=== PATIENT | female | born 1995 | race American Indian/Alaskan Native ===

== ENCOUNTER 2018-03-17 13:10 | Emergency (ER) | payer SELFPAY ==
[2018-03-17 13:20] VITALS: BP 125/72
[2018-03-17 14:36] LABS: HCG Qualitative,Urine Negative (Negative)
[2018-03-17 14:39] LABS: Bacteria,Urine 2+ /HPF (Negative); Bilirubin,Urine NEG (Negative); Blood,Urine SM (Negative); Color,Urine Yellow (Yellow); Mucus,Urine 1+ /HPF; Protein,Urine <15 mg/dL mg/dL (Negative); Urobilinogen,Urine < 2.0 mg/dL (<2.0)
--- NOTE | 2018-03-17 16:17 | Emergency Department Report ---
ED Female HPI - General Chief complaint: Abdominal Pain Stated complaint: BACK PAIN Time Seen by Provider: 03/17/18 16:10 Source: patient Mode of arrival: Ambulatory Limitations: No Limitations - History of Present Illness Initial comments: This is a 23-year-old female here complaining of low back pain and lower abdominal cramping times weeks. Denies any vaginal bleeding or discharge or any concern for STDs. She reports that she was having some nausea which is not happened today. In report that she was having some dizziness. Patient denies any painful urination. Reports that she was having urinary frequency and urgency. No alleviating or exacerbating factor. Pain is 10/10 to back and to some extent to abdomen. Intermittent abdomen and constant lower back. She is a history of asthma and 2. No medication taken prior to coming to the emergency room. Denies any fever or chills. MD Complaint: pelvic pain Onset/Timin Location: suprapubic, other (back) Radiation: non-radiating Severity: severe Severity scale (0 -10): 10 Quality: cramping Improves with: none Worsens with: none Are you Now?: No Last Menstrual Period: 02/16/18 EDC: 11/23/18 Associated Symptoms: abdominal pain, nausea/vomiting. denies: vaginal discharge , vaginal bleeding, fever/chills, headaches, loss of appetite, dysuria, hematuria, rash, seizure, shortness of breath, syncope, weakness - Related Data Sexually active: Yes Previous Rx's Medication Instructions Recorded Last Taken Type Fluconazole [Diflucan TAB] 200 mg PO QDAY 2 Days #2 tablet 03/17/18 Unknown Rx Ibuprofen [Motrin] 800 mg PO Q8HR PRN #15 tablet 03/17/18 Unknown Rx Ondansetron [Zofran Odt] 4 mg PO Q6H PRN #20 tab.rapdis 03/17/18 Unknown Rx Sulfamethoxazole/Trimethoprim 1 each PO BID 7 Days #14 tablet 03/17/18 Unknown Rx [Bactrim DS TAB] Allergies Allergy/AdvReac Type Severity Reaction Status Date / Time Penicillins Allergy Swelling Verified 03/17/18 13:17 ED Review of Systems ROS: Stated complaint: BACK PAIN Other details as noted in HPI Constitutional: denies: chills, fever Eyes: denies: eye discharge Respiratory: denies: cough, shortness of breath, SOB with exertion, SOB at rest , stridor, wheezing Cardiovascular: denies: chest pain, palpitations, edema, syncope Gastrointestinal: abdominal pain, nausea. denies: vomiting, diarrhea, constipation, hematemesis, melena, hematochezia Genitourinary: urgency, frequency. denies: dysuria, hematuria, discharge, abnormal menses, dyspareunia Musculoskeletal: denies: back pain, joint swelling, arthralgia Skin: denies: rash, lesions Psychiatric: anxiety ED Past Medical Hx - Past Medical History Previous Medical History?: Yes Hx Asthma: Yes - Surgical History Past Surgical History?: Yes Additional Surgical History: x 2 - Family History Family history: hypertension - Social History Smoking Status: Never Smoker Substance Use Type: None - Medications Home Medications: Home Medications Medication Instructions Recorded Confirmed Last Taken Type Fluconazole [Diflucan TAB] 200 mg PO QDAY 2 Days #2 tablet 03/17/18 Unknown Rx Ibuprofen [Motrin] 800 mg PO Q8HR PRN #15 tablet 03/17/18 Unknown Rx Ondansetron [Zofran Odt] 4 mg PO Q6H PRN #20 tab.rapdis 03/17/18 Unknown Rx Sulfamethoxazole/Trimethoprim 1 each PO BID 7 Days #14 tablet 03/17/18 Unknown Rx [Bactrim DS TAB] ED Physical Exam - General Limitations: No Limitations General appearance: alert, in no apparent distress - Head Head exam: Present: atraumatic, normocephalic, normal inspection - Eye Eye exam: Present: normal appearance, PERRL, EOMI Pupils: Present: normal accommodation - ENT ENT exam: Present: normal exam, normal orophraynx, mucous membranes moist, TM's normal bilaterally, normal external ear exam - Neck Neck exam: Present: normal inspection, full ROM. Absent: tenderness, lymphadenopathy - Respiratory Respiratory exam: Present: normal lung sounds bilaterally. Absent: respiratory distress, chest wall tenderness - Cardiovascular Cardiovascular Exam: Present: regular rate, normal rhythm, normal heart sounds, rubs. Absent: systolic murmur, diastolic murmur - GI/Abdominal GI/Abdominal exam: Present: soft, normal bowel sounds. Absent: distended, tenderness, guarding, rebound, rigid, organomegaly, mass - Extremities Exam Extremities exam: Present: normal inspection, full ROM, normal capillary refill , other (No cce. + 2 pulses in all extremities, no neurovascular compromise). Absent: tenderness, pedal edema, joint swelling, calf tenderness - Back Exam Back exam: Present: normal inspection, full ROM, other (ambulance without any difficulties). Absent: tenderness, CVA tenderness (R), CVA tenderness (L), muscle spasm, paraspinal tenderness, vertebral tenderness, rash noted - Neurological Exam Neurological exam: Present: alert, oriented X3, normal gait, reflexes normal. Absent: motor sensory deficit - Psychiatric Psychiatric exam: Present: normal affect, normal mood - Skin Skin exam: Present: warm, dry, intact, normal color. Absent: rash ED Course Vital Signs 03/17/18 13:17 Temperature 98.4 F Pulse Rate 88 Respiratory 18 Rate Blood Pressure 125/72 O2 Sat by Pulse 99 Oximetry - Reevaluation(s) Reevaluation #1: 03/17/18 16:57 Patient is stable and received Zofran 8 mg ODT and Toradol 30 mg IM for pain and nausea. ED Medical Decision Making - Lab Data Lab Results 03/17/18 Range/Units 13:36 Urine Color Yellow (Yellow) Urine Turbidity Cloudy (Clear) Urine pH 5.0 (5.0-7.0) Ur Specific [place] 1.025 (1.003-1.030) Urine Protein <15 mg/dl (Negative) mg/dL Urine Glucose (UA) Neg (Negative) mg/dL Urine Ketones Neg (Negative) mg/dL Urine Blood Sm (Negative) Urine Nitrite Neg (Negative) Ur Reducing Substances Not Reportable Urine Bilirubin Neg (Negative) Urine Ictotest Not Reportable Urine Urobilinogen < 2.0 (<2.0) mg/dL Ur Leukocyte Esterase Lg (Negative) Urine WBC (Auto) 17.0 H (0.0-6.0) /HPF Urine RBC (Auto) 9.0 (0.0-6.0) /HPF U Epithel Cells (Auto) 21.0 H (0-13.0) /HPF Urine Bacteria (Auto) 2+ (Negative) /HPF Urine Mucus 1+ /HPF Urine Yeast (Budding) 1+ /HPF Urine HCG, Qual Negative (Negative) Urine culture sent - Medical Decision Making This is a 23-year-old female here complaining of abdominal pain with some nausea that started 2 weeks ago and says she just moved to the area and she does not have a primary care physician. She is here to be seen. Patient was seen and examined by myself and physical findings is normal to include her abdomen exam. Patient urinalysis shows large amount of discomfort side esterase, positive white blood cell, small amount of blood, positive bacteria and yeast and urine is also contaminated. Culture was sent. test is negative. I discussed diagnosis and laboratory findings the patient and she was understanding. I told her that she needs to follow up with [facility] for [facility] and primary care in 2 days. She was understanding. Patient was given Toradol 30 mg IM and Zofran 8 mg ODT to manage pain to back and abdomen and also nausea. She is with acute cystitis with hematuria, low back pain, pelvic pain and nausea alone. Patient is stable , vital signs afebrile she is pain and nausea free and discharged home in stable condition. Critical care attestation.: If time is entered above; I have spent that time in minutes in the direct care of this critically ill patient, excluding procedure time. ED Disposition Clinical Impression: Acute cystitis with hematuria, Pelvic pain, Nausea alone, Yeast UTI Lower back pain Qualifiers: Chronicity: acute Back pain laterality: bilateral Sciatica presence: without sciatica Qualified Code(s): M54.5 - Low back pain Disposition: - TO HOME OR SELFCARE Is pt being admited?: No Does the pt Need Aspirin: No Condition: Stable Instructions: Abdominal Pain (ED), Acute Nausea and Vomiting (ED), Urinary Tract Infection in Women (ED), Back Pain (ED) Additional Instructions: Please increase her fluid intake Take medication as prescribed. Take Bactrim for urinary tract infection and Zofran for nausea. Take Motrin for pain as prescribed Follow up at [facility] where he can have [facility] and primary care visit. Call tomorrow to schedule an appointment for visit within the next 2 days If his symptoms worsen, return to the emergency room. Referrals: [facility] [Outside] - 03/19/18 [facility] [Provider Group] - 03/19/18 Forms: Work/School Release Form(ED)
[2018-03-17] MEDS ORDERED: TORADOL IM ONE (16:56)
[2018-03-17] MEDS ORDERED: ZOFRAN ODT PO ONE (16:56)
== END 2018-03-17 17:21 | disposition home or self-care (01) ==
LOC: ED 13:10
DX: M54.5 Low back pain (principal); N30.01 Acute cystitis with hematuria; R11.2 Nausea with vomiting, unspecified; J45.909 Unspecified asthma, uncomplicated; Z88.0 Allergy status to penicillin
CPT/HCPCS: 81001; 81025; 96372; 99284; J1885; Q0162

== ENCOUNTER 2018-04-21 20:02 | Emergency (ER) | payer SELFPAY ==
[2018-04-21 21:41] VITALS: BP 114/50
[2018-04-22] MEDS ORDERED: TORADOL IM ONE (00:03)
[2018-04-22] MEDS ORDERED: TORADOL ONE (00:07)
--- NOTE | 2018-04-22 00:10 | Emergency Department Report ---
ED Lower Extremity HPI - General Chief Complaint: Extremity Injury, Lower Stated Complaint: LEG PAIN Time Seen by Provider: 04/21/18 23:39 Source: patient Mode of arrival: Ambulatory Limitations: Physical Limitation - History of Present Illness Initial Comments: Patient 23-year-old -[place] female who states she fell down steps 12 2 days ago now complains of left anterior lateral knee pain times described as 6 /10 achy soreness exacerbated by weightbearing movement prolonged sitting and associated swelling and bruising patient states has progressed over the last 2 days no numbness no tingling or paralysis patient remains ambulatory with MD Complaint: knee injury Onset/Timin -: days(s) Injury: Knee: Left (left lateral knee ) Type of Injury: blunt, other (fall ) Place: home Severity: moderate Severity scale (0 -10): 6 Improves With: nothing Worsens With: weight bearing, movement, palpation Associated Symptoms: snap/pop sensation, swelling, able to partially bear weight. denies: numbness, tingling - Related Data Previous Rx's Medication Instructions Recorded Last Taken Type Fluconazole [Diflucan TAB] 200 mg PO QDAY 2 Days #2 tablet 03/17/18 Unknown Rx Ibuprofen [Motrin] 800 mg PO Q8HR PRN #15 tablet 03/17/18 Unknown Rx Ondansetron [Zofran Odt] 4 mg PO Q6H PRN #20 tab.rapdis 03/17/18 Unknown Rx Sulfamethoxazole/Trimethoprim 1 each PO BID 7 Days #14 tablet 03/17/18 Unknown Rx [Bactrim DS TAB] Cyclobenzaprine [Flexeril] 10 mg PO TID PRN #30 tablet 04/22/18 Unknown Rx Menthol/Camphor [[place] 1 applic TP TID PRN #1 tube 04/22/18 Unknown Rx Ointment] Naproxen [Naprosyn] 500 mg PO BID PRN #30 tablet 04/22/18 Unknown Rx Allergies Allergy/AdvReac Type Severity Reaction Status Date / Time Penicillins Allergy Swelling Verified 03/17/18 13:17 ED Review of Systems ROS: Stated complaint: LEG PAIN Other details as noted in HPI Constitutional: denies: chills, fever Eyes: denies: eye pain, eye discharge, vision change ENT: denies: ear pain, throat pain Respiratory: denies: cough, shortness of breath, wheezing Cardiovascular: denies: chest pain, palpitations Endocrine: no symptoms reported Gastrointestinal: denies: abdominal pain, nausea, diarrhea Genitourinary: denies: urgency, dysuria, discharge Musculoskeletal: joint swelling, myalgia. 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 - Surgical History Past Surgical History?: Yes Additional Surgical History: x 2 - Social History Smoking Status: Never Smoker Substance Use Type: None - Medications Home Medications: Home Medications Medication Instructions Recorded Confirmed Last Taken Type Fluconazole [Diflucan TAB] 200 mg PO QDAY 2 Days #2 tablet 03/17/18 Unknown Rx Ibuprofen [Motrin] 800 mg PO Q8HR PRN #15 tablet 03/17/18 Unknown Rx Ondansetron [Zofran Odt] 4 mg PO Q6H PRN #20 tab.rapdis 03/17/18 Unknown Rx Sulfamethoxazole/Trimethoprim 1 each PO BID 7 Days #14 tablet 03/17/18 Unknown Rx [Bactrim DS TAB] Cyclobenzaprine [Flexeril] 10 mg PO TID PRN #30 tablet 04/22/18 Unknown Rx Menthol/Camphor [[place] 1 applic TP TID PRN #1 tube 04/22/18 Unknown Rx Ointment] Naproxen [Naprosyn] 500 mg PO BID PRN #30 tablet 04/22/18 Unknown Rx ED Physical Exam - General Limitations: Physical Limitation General appearance: alert, in no apparent distress - Head Head exam: Present: atraumatic, normocephalic - Eye Eye exam: Present: normal appearance - ENT ENT exam: Present: mucous membranes moist - Neck Neck exam: Present: normal inspection - Respiratory Respiratory exam: Present: normal lung sounds bilaterally. Absent: respiratory distress - Cardiovascular Cardiovascular Exam: Present: regular rate, normal rhythm. Absent: systolic murmur, diastolic murmur, rubs, gallop - GI/Abdominal GI/Abdominal exam: Present: soft, normal bowel sounds - Rectal Rectal exam: Present: deferred - Extremities Exam Extremities exam: Present: full ROM, tenderness, normal capillary refill, joint swelling - Expanded Lower Extremity Exam Left Knee exam: Present: full ROM, tenderness, swelling, ecchymosis, pain w/ pronation/supination, pain/laxity with valgus, pain/laxity with varus, full knee extension. Absent: abrasion, laceration, deformity, crepidus, dislocation , erythema, effusion, posterior draw sign Ankle exam: Present: normal inspection, full ROM Foot/Toe exam: Present: normal inspection, full ROM Neuro vascular tendon exam: Present: no vascular compromise Gait: Positive: observed and limited by pain ED Course Vital Signs 04/21/18 21:40 Temperature 99.3 F Pulse Rate 88 Respiratory 18 Rate Blood Pressure 114/50 [Right] O2 Sat by Pulse 100 Oximetry ED Lower Extremity MDM - Radiology Data Radiology results: report reviewed, image reviewed X-ray left knee no fracture no soft tissue abnormality - Medical Decision Making This is a knee strain plan NSAIDs muscle relaxants cryotherapy knee exercises and follow with PCP in 2-3 days follow-up also surgery if symptoms persist patient verbalizes agreement and understanding of same patient for DC'd home in stable condition at this time Critical care attestation.: If time is entered above; I have spent that time in minutes in the direct care of this critically ill patient, excluding procedure time. ED Disposition Clinical Impression: Knee strain Qualifiers: Encounter type: initial encounter Laterality: left Qualified Code(s): S86.912A - Strain of unspecified muscle(s) and tendon(s) at lower leg level, left leg, initial encounter Disposition: DC- TO HOME OR SELFCARE Is pt being admited?: No Does the pt Need Aspirin: No Condition: Good Instructions: Knee Pain (ED), Knee Exercises (GEN) Prescriptions: Cyclobenzaprine [Flexeril] 10 mg PO TID PRN #30 tablet PRN Reason: Muscle Spasm Menthol/Camphor [[place] Ointment] 1 applic TP TID PRN #1 tube PRN Reason: pain Naproxen [Naprosyn] 500 mg PO BID PRN #30 tablet PRN Reason: pain Referrals: PRIMARY CARE,MD [Primary Care Provider] - 3-5 Days Forms: Work/School Release Form(ED) Time of Disposition: 00:43
--- NOTE | 2018-04-22 00:32 | XRay Report ---
FINAL REPORT EXAM: XR KNEE 1-2V LT HISTORY: knee pain COMPARISON: None available. FINDINGS: Two views of the left knee obtained. Bony structures are intact. Joint spaces are preserved. No acute fracture dislocation. IMPRESSION: No acute bony abnormality.
== END 2018-04-22 00:57 | disposition home or self-care (01) ==
LOC: ED 20:02
DX: S86.912A Strain of unspecified muscle(s) and tendon(s) at lower leg level, left leg, initial encounter (principal); J45.909 Unspecified asthma, uncomplicated; Z88.0 Allergy status to penicillin; X58.XXXA Exposure to other specified factors, initial encounter; Y93.89 Activity, other specified; Y92.009 Unspecified place in unspecified non-institutional (private) residence as the place of occurrence of the external cause; Y99.8 Other external cause status
CPT/HCPCS: 73560; 96372; 99283; J1885

== ENCOUNTER 2018-08-13 14:05 | Emergency (ER) | payer OTHER ==
[2018-08-13 14:28] VITALS: BP 117/51
--- NOTE | 2018-08-13 15:55 | XRay Report ---
FINAL REPORT EXAM: XR CHEST ROUTINE 2V HISTORY: productive cough COMPARISON: Chest radiograph performed on 07/30/2018 TECHNIQUE: Frontal and lateral views of the chest. FINDINGS: The cardiomediastinal silhouette is normal in appearance. The lungs are clear without focal consolidation. There is no pleural effusion or pneumothorax. There is no acute soft tissue or osseous abnormality. IMPRESSION: No acute cardiopulmonary disease.
--- NOTE | 2018-08-13 16:09 | Emergency Department Report ---
Minor Respiratory - HPI Chief Complaint: Chest Pain Stated Complaint: CHEST PAIN Time Seen by Provider: 08/13/18 15:24 Duration: 1 week Pain Location: Chest Severity: moderate Minor Respiratory: Yes Able to Tolerate Fluids, Yes Cough (productive of phlegm and stearks of blood), Yes Chest Pain, No Rhinorrhea, No Sore Throat, No Ear Pain, No Sick Contacts, No Hemoptysis, No Shortness of Breath, No Fever ED Review of Systems ROS: Stated complaint: CHEST PAIN Other details as noted in HPI Comment: All other systems reviewed and negative ED Past Medical Hx - Past Medical History Previous Medical History?: Yes Hx Asthma: Yes 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 - Surgical History Past Surgical History?: No Additional Surgical History: x 2 - Social History Smoking Status: Never Smoker Substance Use Type: None - Medications Home Medications: Home Medications Medication Instructions Recorded Confirmed Last Taken Type Fluconazole [Diflucan TAB] 200 mg PO QDAY 2 Days #2 tablet 03/17/18 Unknown Rx Ibuprofen [Motrin] 800 mg PO Q8HR PRN #15 tablet 03/17/18 Unknown Rx Ondansetron [Zofran Odt] 4 mg PO Q6H PRN #20 tab.rapdis 03/17/18 Unknown Rx Sulfamethoxazole/Trimethoprim 1 each PO BID 7 Days #14 tablet 03/17/18 Unknown Rx [Bactrim DS TAB] Cyclobenzaprine [Flexeril] 10 mg PO TID PRN #30 tablet 04/22/18 Unknown Rx Menthol/Camphor [[place] 1 applic TP TID PRN #1 tube 04/22/18 Unknown Rx Ointment] Naproxen [Naprosyn] 500 mg PO BID PRN #30 tablet 04/22/18 Unknown Rx Azithromycin [Zithromax Z-PALAK] 250 mg PO DAILY #6 tablet 07/30/18 Unknown Rx Ibuprofen [Motrin] 600 mg PO Q8H PRN #20 tablet 07/30/18 Unknown Rx Nystas/Diphen/Xyl Visc/Mylanta 15 ml MM Q4H PRN 5 Days ml 07/30/18 Unknown Rx [Magic Mouthwash] ALBUTEROL Inhaler (OR & NICU) 2 puff IH QID PRN #1 inhalation 08/13/18 Unknown Rx [ProAir HFA Inhaler] Azithromycin [Zithromax Z-PALAK] 250 mg PO DAILY #6 tablet 08/13/18 Unknown Rx predniSONE [Deltasone] 20 mg PO QDAY #5 tab 08/13/18 Unknown Rx Minor Respiratory Exam - Exam General: Vital signs noted. No distress. Alert and acting appropriately. HEENT: Yes Moist Mucous Membranes, No Pharyngeal Erythema, No Pharyngeal Exudates, No Rhinorrhea, No Conjuctival Injection, No Frontal Tenderness, No Maxillary Tenderness Ear: Neither TM Bulge, Neither TM Erythema, Neither EAC Pain, Neither EAC Discharge Neck: Yes Supple, No Adenopathy Lungs: Yes Good Air Exchange, No Wheezes, No Ron[place], No Stridor, No Cough, No Labored Respirations, No Retractions, No Use of Accessory Muscles, No Other Abnormal Lung Sounds Heart: Yes Regular, No Murmur Abdomen: Yes Normal Bowel Sounds, No Tenderness, No Peritoneal Signs Skin: No Rash, No Edema Neurologic: Alert and oriented, no deficits. Musculoskeletal: Unremarkable. ED Course Vital Signs 08/13/18 14:24 Temperature 98.5 F Pulse Rate 77 Respiratory 18 Rate Blood Pressure 117/51 O2 Sat by Pulse 100 Oximetry ED Medical Decision Making - EKG Data -: EKG Interpreted by Ak EKG shows normal: sinus rhythm, axis, intervals, QRS complexes, ST-T waves - EKG Data Interpretation: normal EKG - Radiology Data Radiology results: report reviewed (chest x-ray is within normal limits) - Medical Decision Making Because of the duration of the patient's symptoms and streaks of blood with colorful phlegm patient be started on Z-Palak as well as prednisone to help with her coughing symptoms. Patient be discharged home. Critical care attestation.: If time is entered above; I have spent that time in minutes in the direct care of this critically ill patient, excluding procedure time. ED Disposition Clinical Impression: Acute bronchitis Qualifiers: Bronchitis organism: unspecified organism Qualified Code(s): J20.9 - Acute bronchitis, unspecified Disposition: TO HOME OR SELFCARE Is pt being admited?: No Does the pt Need Aspirin: No Condition: Stable Instructions: Acute Bronchitis (ED) Referrals: ESTRELLA HOPKINS DO [Primary Care Provider] - 3-5 Days Time of Disposition: 16:08
== END 2018-08-13 16:17 | disposition home or self-care (01) ==
LOC: ED 14:05
DX: J20.9 Acute bronchitis, unspecified (principal); J45.909 Unspecified asthma, uncomplicated; Z88.0 Allergy status to penicillin
CPT/HCPCS: 71046; 93005; 93010

== ENCOUNTER 2019-11-09 20:38 | Emergency (ER) | payer OTHER ==
[2019-11-09] MEDS ORDERED: ONDANSETRON 4 MG/2 ML INJ IV ONE (20:59)
[2019-11-09] MEDS ORDERED: SODIUM CHLORIDE 0.9% 1000 ML 1,000 ML IV ONE (20:59)
[2019-11-09 21:03] LABS: Basophils # (Auto) 0.1 K/mm3 (0.0-0.1); Basophils % (Auto) 1.3 % (0.0-1.8); Eosinophils % (Auto) 0.8 % (0.0-4.3); Hematocrit 37.9 % (30.3-42.9); Hemoglobin 12.5 gm/dl (10.1-14.3); Lymphocytes # (Auto) 1.7 K/mm3 (1.2-5.4); Lymphocytes % (Auto) 29.7 % (13.4-35.0); Mean Corpuscular HGB Conc 33 % (30-34); Mean Corpuscular Volume 85 fl (79-97); Monocytes # (Auto) 0.4 K/mm3 (0.0-0.8); Monocytes % (Auto) 7.7 % (0.0-7.3); Platelet Count 250 K/mm3 (140-440); Red Blood Count 4.44 M/mm3 (3.65-5.03); Red Cell Distribution Width 15.7 % (13.2-15.2)
[2019-11-09 21:24] LABS: Bacteria,Urine 1+ /HPF (Negative); Bilirubin,Urine NEG (Negative); Blood,Urine SM (Negative); Color,Urine Yellow (Yellow); Mucus,Urine 3+ /HPF; Urobilinogen,Urine < 2.0 mg/dL (<2.0)
[2019-11-09 21:25] LABS: Alanine Aminotransferase 30 units/L (7-56); Albumin 4.2 g/dL (3.9-5); BUN/Creatinine Ratio 11; Blood Urea Nitrogen 9 mg/dL (7-17); Calcium 9.2 mg/dL (8.4-10.2); Hemolysis Index 8
--- NOTE | 2019-11-09 21:27 | Emergency Department Report ---
ED General Adult HPI - General Chief complaint: Abdominal Pain Stated complaint: ABD PAIN/CP/VOMITING Time Seen by Provider: 11/09/19 20:53 Source: patient Mode of arrival: Ambulatory Limitations: No Limitations - History of Present Illness Initial comments: Patient is a 24-year-old female presents emergency room complaints of generalized abdominal discomfort that began 3 days ago. She has associated nausea and vomiting. She states that she has approximately had 4-5 episodes a day. She denies any diarrhea, dysuria, hematochezia, hematemesis, melena. She has a past medical history of asthma. She states he has an allergy to penicillin. Last menstrual cycle was at the end of August. She states that she had a tubal ligation. - Related Data Previous Rx's Medication Instructions Recorded Last Taken Type Fluconazole [Diflucan TAB] 200 mg PO QDAY 2 Days #2 tablet 03/17/18 Unknown Rx Ibuprofen [Motrin] 800 mg PO Q8HR PRN #15 tablet 03/17/18 Unknown Rx Ondansetron [Zofran Odt] 4 mg PO Q6H PRN #20 tab.rapdis 03/17/18 Unknown Rx Sulfamethoxazole/Trimethoprim 1 each PO BID 7 Days #14 tablet 03/17/18 Unknown Rx [Bactrim DS TAB] Cyclobenzaprine [Flexeril] 10 mg PO TID PRN #30 tablet 04/22/18 Unknown Rx Menthol/Camphor [[place] 1 applic TP TID PRN #1 tube 04/22/18 Unknown Rx Ointment] Naproxen [Naprosyn] 500 mg PO BID PRN #30 tablet 04/22/18 Unknown Rx Azithromycin [Zithromax Z-PALAK] 250 mg PO DAILY #6 tablet 07/30/18 Unknown Rx Ibuprofen [Motrin] 600 mg PO Q8H PRN #20 tablet 07/30/18 Unknown Rx Nystas/Diphen/Xyl Visc/Mylanta 15 ml MM Q4H PRN 5 Days ml 07/30/18 Unknown Rx [Magic Mouthwash] Albuterol INH(or & Nicu Only) 2 puff IH QID PRN #1 inhalation 08/13/18 Unknown Rx [ProAir HFA Inhaler] Azithromycin [Zithromax Z-PALAK] 250 mg PO DAILY #6 tablet 08/13/18 Unknown Rx predniSONE [Deltasone] 20 mg PO QDAY #5 tab 08/13/18 Unknown Rx Ondansetron [Zofran Odt] 4 mg PO Q8HR PRN #12 tab.rapdis 11/09/19 Unknown Rx Allergies Allergy/AdvReac Type Severity Reaction Status Date / Time Penicillins Allergy Swelling Verified 08/13/18 14:28 ED Review of Systems ROS: Stated complaint: ABD PAIN/CP/VOMITING Other details as noted in HPI Comment: All other systems reviewed and negative ED Past Medical Hx - Past Medical History Previous Medical History?: Yes Hx Asthma: Yes 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 - Surgical History Past Surgical History?: Yes Additional Surgical History: x 2 - Social History Smoking Status: Never Smoker Substance Use Type: None - Medications Home Medications: Home Medications Medication Instructions Recorded Confirmed Last Taken Type Fluconazole [Diflucan TAB] 200 mg PO QDAY 2 Days #2 tablet 03/17/18 Unknown Rx Ibuprofen [Motrin] 800 mg PO Q8HR PRN #15 tablet 03/17/18 Unknown Rx Ondansetron [Zofran Odt] 4 mg PO Q6H PRN #20 tab.rapdis 03/17/18 Unknown Rx Sulfamethoxazole/Trimethoprim 1 each PO BID 7 Days #14 tablet 03/17/18 Unknown Rx [Bactrim DS TAB] Cyclobenzaprine [Flexeril] 10 mg PO TID PRN #30 tablet 04/22/18 Unknown Rx Menthol/Camphor [[place] 1 applic TP TID PRN #1 tube 04/22/18 Unknown Rx Ointment] Naproxen [Naprosyn] 500 mg PO BID PRN #30 tablet 04/22/18 Unknown Rx Azithromycin [Zithromax Z-PALAK] 250 mg PO DAILY #6 tablet 07/30/18 Unknown Rx Ibuprofen [Motrin] 600 mg PO Q8H PRN #20 tablet 07/30/18 Unknown Rx Nystas/Diphen/Xyl Visc/Mylanta 15 ml MM Q4H PRN 5 Days ml 07/30/18 Unknown Rx [Magic Mouthwash] Albuterol INH(or & Nicu Only) 2 puff IH QID PRN #1 inhalation 08/13/18 Unknown Rx [ProAir HFA Inhaler] Azithromycin [Zithromax Z-PALAK] 250 mg PO DAILY #6 tablet 08/13/18 Unknown Rx predniSONE [Deltasone] 20 mg PO QDAY #5 tab 08/13/18 Unknown Rx Ondansetron [Zofran Odt] 4 mg PO Q8HR PRN #12 tab.rapdis 11/09/19 Unknown Rx ED Physical Exam - General Limitations: No Limitations General appearance: alert, in no apparent distress - Head Head exam: Present: atraumatic, normocephalic - Eye Eye exam: Present: normal appearance - ENT ENT exam: Present: mucous membranes moist - Respiratory Respiratory exam: Present: normal lung sounds bilaterally. Absent: respiratory distress, wheezes, rales, rhonchi, stridor, chest wall tenderness, accessory muscle use, decreased breath sounds, prolonged expiratory - Cardiovascular Cardiovascular Exam: Present: regular rate, normal rhythm, normal heart sounds. Absent: systolic murmur, diastolic murmur, rubs, gallop - GI/Abdominal GI/Abdominal exam: Present: soft, normal bowel sounds. Absent: distended, tenderness, guarding, rebound, rigid - Back Exam Back exam: Absent: CVA tenderness (R), CVA tenderness (L) - Neurological Exam Neurological exam: Present: alert, oriented X3 - Psychiatric Psychiatric exam: Present: normal affect, normal mood - Skin Skin exam: Present: warm, dry, intact ED Course Vital Signs 11/09/19 11/09/19 11/09/19 20:47 21:14 22:51 Temperature 98.5 F 97.9 F Pulse Rate 85 78 Respiratory 16 18 18 Rate Blood Pressure 121/78 Blood Pressure 119/68 [Left] O2 Sat by Pulse 100 100 Oximetry ED Medical Decision Making - Lab Data Result diagrams: 11/09/19 20:53 11/09/19 20:53 Lab Results 11/09/19 11/09/19 11/09/19 Range/Units 20:53 20:53 20:53 WBC 5.7 (4.5-11.0) K/mm3 RBC 4.44 (3.65-5.03) M/mm3 Hgb 12.5 (10.1-14.3) gm/dl Hct 37.9 (30.3-42.9) % MCV 85 (79-97) fl MCH 28 (28-32) pg MCHC 33 (30-34) % RDW 15.7 H (13.2-15.2) % Plt Count 250 (140-440) K/mm3 Lymph % (Auto) 29.7 (13.4-35.0) % [place] % (Auto) 7.7 H (0.0-7.3) % Eos % (Auto) 0.8 (0.0-4.3) % Baso % (Auto) 1.3 (0.0-1.8) % Lymph # 1.7 (1.2-5.4) K/mm3 [place] # 0.4 (0.0-0.8) K/mm3 Eos # 0.0 (0.0-0.4) K/mm3 Baso # 0.1 (0.0-0.1) K/mm3 Seg Neutrophils % 60.5 (40.0-70.0) % Seg Neutrophils # 3.5 (1.8-7.7) K/mm3 Sodium 139 (137-145) mmol/L Potassium 3.9 (3.6-5.0) mmol/L Chloride 101.6 (98-107) mmol/L Carbon Dioxide 21 L (22-30) mmol/L Anion Gap 20 mmol/L BUN 9 (7-17) mg/dL Creatinine 0.8 (0.7-1.2) mg/dL Estimated GFR > 60 ml/min BUN/Creatinine Ratio 11 % Glucose 100 (65-100) mg/dL Calcium 9.2 (8.4-10.2) mg/dL Total Bilirubin 0.30 (0.1-1.2) mg/dL AST 24 (5-40) units/L ALT 30 (7-56) units/L Alkaline Phosphatase 81 (35-129) units/L Total Protein 8.9 H (6.3-8.2) g/dL Albumin 4.2 (3.9-5) g/dL Albumin/Globulin Ratio 0.9 % Lipase 20 (13-60) units/L HCG, Qual Negative (Negative) Urine Color (Yellow) Urine Turbidity (Clear) Urine pH (5.0-7.0) Ur Specific [place] (1.003-1.030) Urine Protein (Negative) mg/dL Urine Glucose (UA) (Negative) mg/dL Urine Ketones (Negative) mg/dL Urine Blood (Negative) Urine Nitrite (Negative) Urine Bilirubin (Negative) Urine Urobilinogen (<2.0) mg/dL Ur Leukocyte Esterase (Negative) Urine WBC (Auto) (0.0-6.0) /HPF Urine RBC (Auto) (0.0-6.0) /HPF U Epithel Cells (Auto) (0-13.0) /HPF Urine Bacteria (Auto) (Negative) /HPF Urine Mucus /HPF 11/09/19 Range/Units 21:11 WBC (4.5-11.0) K/mm3 RBC (3.65-5.03) M/mm3 Hgb (10.1-14.3) gm/dl Hct (30.3-42.9) % MCV (79-97) fl MCH (28-32) pg MCHC (30-34) % RDW (13.2-15.2) % Plt Count (140-440) K/mm3 Lymph % (Auto) (13.4-35.0) % [place] % (Auto) (0.0-7.3) % Eos % (Auto) (0.0-4.3) % Baso % (Auto) (0.0-1.8) % Lymph # (1.2-5.4) K/mm3 [place] # (0.0-0.8) K/mm3 Eos # (0.0-0.4) K/mm3 Baso # (0.0-0.1) K/mm3 Seg Neutrophils % (40.0-70.0) % Seg Neutrophils # (1.8-7.7) K/mm3 Sodium (137-145) mmol/L Potassium (3.6-5.0) mmol/L Chloride (98-107) mmol/L Carbon Dioxide (22-30) mmol/L Anion Gap mmol/L BUN (7-17) mg/dL Creatinine (0.7-1.2) mg/dL Estimated GFR ml/min BUN/Creatinine Ratio % Glucose (65-100) mg/dL Calcium (8.4-10.2) mg/dL Total Bilirubin (0.1-1.2) mg/dL AST (5-40) units/L ALT (7-56) units/L Alkaline Phosphatase (35-129) units/L Total Protein (6.3-8.2) g/dL Albumin (3.9-5) g/dL Albumin/Globulin Ratio % Lipase (13-60) units/L HCG, Qual (Negative) Urine Color Yellow (Yellow) Urine Turbidity Slightly-cloudy (Clear) Urine pH 5.0 (5.0-7.0) Ur Specific [place] 1.031 H (1.003-1.030) Urine Protein 30 mg/dl (Negative) mg/dL Urine Glucose (UA) Neg (Negative) mg/dL Urine Ketones Neg (Negative) mg/dL Urine Blood Sm (Negative) Urine Nitrite Neg (Negative) Urine Bilirubin Neg (Negative) Urine Urobilinogen < 2.0 (<2.0) mg/dL Ur Leukocyte Esterase Mod (Negative) Urine WBC (Auto) 3.0 (0.0-6.0) /HPF Urine RBC (Auto) 8.0 (0.0-6.0) /HPF U Epithel Cells (Auto) 10.0 (0-13.0) /HPF Urine Bacteria (Auto) 1+ (Negative) /HPF Urine Mucus 3+ /HPF - Medical Decision Making Patient is a 24-year-old female presents emergency room complaints of generalized abdominal discomfort that began 3 days ago. She has associated nausea and vomiting. She states that she has approximately had 4-5 episodes a day. She denies any diarrhea, dysuria, hematochezia, hematemesis, melena. She has a past medical history of asthma. She states he has an allergy to penicillin. Last menstrual cycle was at the end of August. She states that she had a tubal ligation. vitals are normal. No abnormality on physical examination as documented in chart. Patient given 1 L of IV fluids and Zofran and symptoms improved and she was feeling much better. She states that she has a mild headache. Patient was given p.o. ibuprofen which improved the headache and she was able to tolerate p.o. intake without difficulty. Patient had no further episodes of vomiting while in the ED. advised pt Please take medication as prescribed as needed. Increase your water intake over the next several days. Eat a bland diet. Avoid anything sugary or greasy. Follow-up with your primary care doctor. Return to the emergency room immediately for any new or worsening symptoms including but not limited to worsening abdominal pain, fever, unable to tolerate by mouth intake, etc. Critical care attestation.: If time is entered above; I have spent that time in minutes in the direct care of this critically ill patient, excluding procedure time. ED Disposition Clinical Impression: Generalized abdominal pain Nausea & vomiting Qualifiers: Vomiting type: unspecified Vomiting Intractability: non-intractable Qualified Code(s): R11.2 - Nausea with vomiting, unspecified Disposition: DC-01 TO HOME OR SELFCARE Is pt being admited?: No Does the pt Need Aspirin: No Condition: Stable Instructions: Acute Nausea and Vomiting (ED), Abdominal Pain (ED) Additional Instructions: Please take medication as prescribed as needed. Increase your water intake over the next several days. Eat a bland diet. Avoid anything sugary or greasy. Fo llow-up with your primary care doctor. Return to the emergency room immediately for any new or worsening symptoms including but not limited to worsening abdominal pain, fever, unable to tolerate by mouth intake, etc. Prescriptions: Ondansetron [Zofran Odt] 4 mg PO Q8HR PRN #12 tab.rapdis PRN Reason: Nausea And Vomiting Referrals: PRIMARY CAREMD [Primary Care Provider] - 3-5 Days AUGIE NGUYEN MD [Staff Physician] - 3-5 Days [facility] [Provider Group] - 3-5 Days [facility] [Outside] - 3-5 Days [facility] [Outside] - 3-5 Days Time of Disposition: 22:41 Print Language: NICARAGUAN
[2019-11-09] MEDS ORDERED: IBUPROFEN 600 MG TAB PO ONE (22:18)
[2019-11-09 22:52] VITALS: BP 119/68
== END 2019-11-09 22:51 | disposition home or self-care (01) ==
LOC: ED 20:38
DX: R10.84 Generalized abdominal pain (principal); R11.2 Nausea with vomiting, unspecified; J45.909 Unspecified asthma, uncomplicated; Z79.899 Other long term (current) drug therapy; Z88.0 Allergy status to penicillin
CPT/HCPCS: 36415; 80053; 81001; 83690; 84703; 85025; 96361; 96374; 99283; J2405; J7030

== ENCOUNTER 2020-04-25 18:55 | Emergency (ER) | payer OTHER ==
[2020-04-25 19:10] VITALS: BP 124/86
[2020-04-25 19:56] LABS: Basophils # (Auto) 0.1 K/mm3 (0.0-0.1); Basophils % (Auto) 1.2 % (0.0-1.8); Eosinophils # (Auto) 0.2 K/mm3 (0.0-0.4); Eosinophils % (Auto) 3.6 % (0.0-4.3); Hematocrit 36.6 % (30.3-42.9); Hemoglobin 11.6 gm/dl (10.1-14.3); Lymphocytes # (Auto) 1.4 K/mm3 (1.2-5.4); Lymphocytes % (Auto) 26.1 % (13.4-35.0); Mean Corpuscular HGB Conc 32 % (30-34); Mean Corpuscular Volume 87 fl (79-97); Monocytes # (Auto) 0.4 K/mm3 (0.0-0.8); Monocytes % (Auto) 7.8 % (0.0-7.3); Platelet Count 215 K/mm3 (140-440); Red Blood Count 4.23 M/mm3 (3.65-5.03); Red Cell Distribution Width 15.4 % (13.2-15.2)
[2020-04-25 20:06] LABS: Blood Urea Nitrogen 7 mg/dL (7-17); Hemolysis Index 8
[2020-04-25 20:16] LABS: BUN/Creatinine Ratio 10
== END 2020-04-26 03:30 | disposition left against medical advice (07) ==
LOC: ED 18:55
DX: R07.89 Other chest pain (principal); R51 Headache; Z53.21 Procedure and treatment not carried out due to patient leaving prior to being seen by health care provider
CPT/HCPCS: 36415; 80048; 84703; 85025; 93005

== ENCOUNTER 2020-11-02 16:48 | Emergency (ER) | payer OTHER ==
--- NOTE | 2020-11-02 18:08 | Event Note ---
ED Screening Note Date of service: 11/02/20 Time: 18:07 ED Screening Note: 25-year-old female (12 weeks gestation) presents to the emergency department with complaints of lower abdominal pain and vaginal bleeding starting last night. Patient visualized multiple blood clots today. States he has gone through approximately 20 tampons since she woke up this morning. She was sent to the emergency department by her primary care provider for further evaluation. She underwent an OB ultrasound approximately 2 weeks ago, at which time she was advised that the heart rate was abnormally low. General: Awake, appropriately interactive, no acute distress. Neck: Supple. Full range of motion intact. Cardiovascular: Normal peripheral perfusion. Pulmonary: No respiratory distress. Patient is speaking normally without use of accessory muscles. Abdomen: Lower abdominal tenderness without focal guarding, rigidity, or rebound. Skin: No apparent rashes or lesions. Neurological: No facial asymmetry. Speech is clear. Follows commands. Patient is alert and oriented. Musculoskeletal: Moves all four extremities spontaneously with normal range of motion. Psych: Cooperative. Appropriate mood and affect. I have greeted and performed a focused rapid initial assessment of this patient. A comprehensive ED assessment and evaluation of the patient, analysis of all test results, and completion of the medical decision-making process will be conducted by additional ED providers. This initial assessment/diagnostic orders/clinical plan/treatment(s) is/are subject to change based on patients health status, clinical progression and re-assessment. Further treatment and workup at subsequent clinical provider's discretion. Patient/guardian urged not to elope from the ED as their condition may be serious if not clinically assessed and managed.
[2020-11-02 18:10] VITALS: BP 124/82
[2020-11-02 18:52] LABS: Basophils % (Auto) 0.8 % (0.0-1.8); Eosinophils # (Auto) 0.2 K/mm3 (0.0-0.4); Hemoglobin 11.8 gm/dl (10.1-14.3); Lymphocytes # (Auto) 1.8 K/mm3 (1.2-5.4); Lymphocytes % (Auto) 34.5 % (13.4-35.0); Mean Corpuscular HGB Conc 32 % (30-34); Mean Corpuscular Volume 86 fl (79-97); Monocytes # (Auto) 0.4 K/mm3 (0.0-0.8); Monocytes % (Auto) 8.3 % (0.0-7.3); Red Cell Distribution Width 14.5 % (13.2-15.2)
[2020-11-02 19:02] LABS: INR 0.89 (0.87-1.13)
[2020-11-02 19:03] LABS: Partial Thromboplastin Time 34.1 Sec. (24.2-36.6)
[2020-11-02 19:09] LABS: Platelet Count 220 K/mm3 (140-440)
[2020-11-02 19:12] LABS: Bilirubin,Urine NEG (Negative); Blood,Urine LG (Negative); Color,Urine Red (Yellow); Mucus,Urine 3+ /HPF; Urobilinogen,Urine < 2.0 mg/dL (<2.0)
[2020-11-02 19:12] LABS: Alanine Aminotransferase 17 units/L (7-56); Albumin 3.8 g/dL (3.9-5); Blood Urea Nitrogen 6 mg/dL (7-17); Calcium 8.4 mg/dL (8.4-10.2); Hemolysis Index 6
[2020-11-02 19:13] LABS: RBC,Urine > 182.0 /HPF (0.0-6.0)
[2020-11-02 19:18] LABS: BUN/Creatinine Ratio 9
[2020-11-02] MEDS ORDERED: traMADol 50 MG TAB PO ONE (19:53)
[2020-11-02] MEDS ORDERED: ONDANSETRON 4 MG ODT TAB PO ONE (19:53)
--- NOTE | 2020-11-02 20:06 | Emergency Department Report ---
ED General Adult HPI - General Chief complaint: Vaginal Bleeding Stated complaint: 12WKS /BLEEDING/ABD PAIN Time Seen by Provider: 11/02/20 19:54 Source: patient Mode of arrival: Ambulatory Limitations: No Limitations - History of Present Illness Initial comments: 25-year-old female (12 weeks gestation) presents to the emergency department with complaints of lower abdominal pain and vaginal bleeding starting last night. Patient visualized multiple blood clots today. States he has gone through approximately 20 tampons since she woke up this morning. She was sent to the emergency department by her primary care provider for further evaluation. She underwent an OB ultrasound approximately 2 weeks ago, at which time she was advised that the heart rate was abnormally low. pt has follow up appointment with OBGYN Dr Castañeda in 3 days. - Related Data Previous Rx's Medication Instructions Recorded Last Taken Type Fluconazole [Diflucan TAB] 200 mg PO QDAY 2 Days #2 tablet 03/17/18 Unknown Rx Ibuprofen [Motrin] 800 mg PO Q8HR PRN #15 tablet 03/17/18 Unknown Rx Ondansetron [Zofran Odt] 4 mg PO Q6H PRN #20 tab.rapdis 03/17/18 Unknown Rx Sulfamethoxazole/Trimethoprim 1 each PO BID 7 Days #14 tablet 03/17/18 Unknown Rx [Bactrim DS TAB] Cyclobenzaprine [Flexeril] 10 mg PO TID PRN #30 tablet 04/22/18 Unknown Rx Menthol/Camphor [[place] 1 applic TP TID PRN #1 tube 04/22/18 Unknown Rx Ointment] Naproxen [Naprosyn] 500 mg PO BID PRN #30 tablet 04/22/18 Unknown Rx Ibuprofen [Motrin] 600 mg PO Q8H PRN #20 tablet 07/30/18 Unknown Rx Nystas/Diphen/Xyl Visc/Mylanta 15 ml MM Q4H PRN 5 Days ml 07/30/18 Unknown Rx [Magic Mouthwash] Azithromycin [Zithromax Z-PALAK] 250 mg PO DAILY #6 tablet 08/13/18 Unknown Rx predniSONE [Deltasone] 20 mg PO QDAY #5 tab 08/13/18 Unknown Rx Ondansetron [Zofran Odt] 4 mg PO Q8HR PRN #12 tab.rapdis 11/09/19 Unknown Rx Clindamycin [Clindamycin CAP] 150 mg PO Q8HR #60 capsule 01/06/20 Unknown Rx Dicyclomine [Bentyl] 20 mg PO Q6H PRN #30 tablet 01/06/20 Unknown Rx Famotidine [Pepcid] 20 mg PO BID #30 tablet 01/06/20 Unknown Rx Ofloxacin 0.3% [Floxin 0.3% Otic] 1 ml OT Q8H #5 ml 01/06/20 Unknown Rx Ondansetron [Zofran Odt] 4 mg PO Q8HR #20 tab.rapdis 01/06/20 Unknown Rx traMADoL [Ultram] 50 mg PO Q6HR PRN #12 tablet 01/06/20 Unknown Rx Albuterol Mdi (or & Nicu Only) 2 puff IH QID PRN #1 inhalation 02/08/20 Unknown Rx [ProAir HFA Inhaler] Azithromycin [Zithromax Z-PALAK] 250 mg PO DAILY #6 tablet 02/08/20 Unknown Rx Codeine Phosphate/Guaifenesin 5 ml PO Q6HR #65 ml 02/08/20 Unknown Rx [Guaifen-Codeine 200-20 mg/10Ml] predniSONE [Deltasone] 50 mg PO QDAY #54 tab 02/08/20 Unknown Rx Acetaminophen [Acetaminophen TAB] 1,000 mg PO Q6HR PRN #30 tablet 11/02/20 Unknown Rx cephALEXin [Keflex] 500 mg PO BID 7 Days #14 cap 11/02/20 Unknown Rx Allergies Allergy/AdvReac Type Severity Reaction Status Date / Time adhesive tape Allergy Rash Verified 11/02/20 18:03 ibuprofen Allergy Swelling Verified 11/02/20 18:03 Penicillins Allergy Swelling Verified 11/02/20 18:03 ED Review of Systems ROS: Stated complaint: 12WKS /BLEEDING/ABD PAIN Other details as noted in HPI Constitutional: denies: chills, fever Eyes: denies: eye pain, eye discharge, vision change ENT: denies: ear pain, throat pain Respiratory: no symptoms reported Cardiovascular: denies: chest pain, palpitations Endocrine: no symptoms reported Gastrointestinal: abdominal pain (cramping ), nausea. 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 - Surgical History Additional Surgical History: x 2 - Social History Smoking Status: Never Smoker Substance Use Type: None - Medications Home Medications: Home Medications Medication Instructions Recorded Confirmed Last Taken Type Fluconazole [Diflucan TAB] 200 mg PO QDAY 2 Days #2 tablet 03/17/18 Unknown Rx Ibuprofen [Motrin] 800 mg PO Q8HR PRN #15 tablet 03/17/18 Unknown Rx Ondansetron [Zofran Odt] 4 mg PO Q6H PRN #20 tab.rapdis 03/17/18 Unknown Rx Sulfamethoxazole/Trimethoprim 1 each PO BID 7 Days #14 tablet 03/17/18 Unknown Rx [Bactrim DS TAB] Cyclobenzaprine [Flexeril] 10 mg PO TID PRN #30 tablet 04/22/18 Unknown Rx Menthol/Camphor [[place] 1 applic TP TID PRN #1 tube 04/22/18 Unknown Rx Ointment] Naproxen [Naprosyn] 500 mg PO BID PRN #30 tablet 04/22/18 Unknown Rx Ibuprofen [Motrin] 600 mg PO Q8H PRN #20 tablet 07/30/18 Unknown Rx Nystas/Diphen/Xyl Visc/Mylanta 15 ml MM Q4H PRN 5 Days ml 07/30/18 Unknown Rx [Magic Mouthwash] Azithromycin [Zithromax Z-PALAK] 250 mg PO DAILY #6 tablet 08/13/18 Unknown Rx predniSONE [Deltasone] 20 mg PO QDAY #5 tab 08/13/18 Unknown Rx Ondansetron [Zofran Odt] 4 mg PO Q8HR PRN #12 tab.rapdis 11/09/19 Unknown Rx Clindamycin [Clindamycin CAP] 150 mg PO Q8HR #60 capsule 01/06/20 Unknown Rx Dicyclomine [Bentyl] 20 mg PO Q6H PRN #30 tablet 01/06/20 Unknown Rx Famotidine [Pepcid] 20 mg PO BID #30 tablet 01/06/20 Unknown Rx Ofloxacin 0.3% [Floxin 0.3% Otic] 1 ml OT Q8H #5 ml 01/06/20 Unknown Rx Ondansetron [Zofran Odt] 4 mg PO Q8HR #20 tab.rapdis 01/06/20 Unknown Rx traMADoL [Ultram] 50 mg PO Q6HR PRN #12 tablet 01/06/20 Unknown Rx Albuterol Mdi (or & Nicu Only) 2 puff IH QID PRN #1 inhalation 02/08/20 Unknown Rx [ProAir HFA Inhaler] Azithromycin [Zithromax Z-PALAK] 250 mg PO DAILY #6 tablet 02/08/20 Unknown Rx Codeine Phosphate/Guaifenesin 5 ml PO Q6HR #65 ml 02/08/20 Unknown Rx [Guaifen-Codeine 200-20 mg/10Ml] predniSONE [Deltasone] 50 mg PO QDAY #54 tab 02/08/20 Unknown Rx Acetaminophen [Acetaminophen TAB] 1,000 mg PO Q6HR PRN #30 tablet 11/02/20 Un known Rx cephALEXin [Keflex] 500 mg PO BID 7 Days #14 cap 11/02/20 Unknown Rx ED Physical Exam - General Limitations: No Limitations General appearance: alert, in no apparent distress - Head Head exam: Present: atraumatic, normocephalic - Eye Eye exam: Present: normal appearance - ENT ENT exam: Present: mucous membranes moist - Neck Neck exam: Present: normal inspection - Respiratory Respiratory exam: Present: normal lung sounds bilaterally. Absent: respiratory distress, wheezes, stridor, chest wall tenderness - Cardiovascular Cardiovascular Exam: Present: regular rate, normal rhythm, normal heart sounds. Absent: systolic murmur, diastolic murmur, rubs, gallop - GI/Abdominal GI/Abdominal exam: Present: soft, normal bowel sounds. Absent: distended, tenderness, guarding, rebound, rigid, bruit, hernia - Rectal Rectal exam: Present: deferred - Extremities Exam Extremities exam: Present: normal inspection, full ROM, normal capillary refill. Absent: tenderness, pedal edema - Back Exam Back exam: Present: normal inspection, full ROM. Absent: tenderness, CVA tenderness (R), CVA tenderness (L) - Neurological Exam Neurological exam: Present: alert, oriented X3, normal gait - Psychiatric Psychiatric exam: Present: normal affect, normal mood - Skin Skin exam: Present: warm, dry, intact, normal color. Absent: rash ED Course Vital Signs 11/02/20 18:09 Temperature 99.0 F Pulse Rate 81 Respiratory 18 Rate Blood Pressure 124/82 O2 Sat by Pulse 99 Oximetry ED Medical Decision Making - Lab Data Result diagrams: 11/02/20 18:29 11/02/20 18:29 Labs 11/02/20 11/02/20 11/02/20 18:29 18:29 18:29 WBC 5.2 RBC 4.30 Hgb 11.8 Hct 37.0 MCV 86 MCH 28 MCHC 32 RDW 14.5 Plt Count 220 Lymph % (Auto) 34.5 [place] % (Auto) 8.3 H Eos % (Auto) 4.0 Baso % (Auto) 0.8 Lymph # (Auto) 1.8 [place] # (Auto) 0.4 Eos # (Auto) 0.2 Baso # (Auto) 0.0 Seg Neutrophils % 52.4 Seg Neutrophils # 2.7 PT 11.8 L INR 0.89 APTT 34.1 Sodium 136 L Potassium 3.9 Chloride 103.9 Carbon Dioxide 25 Anion Gap 11 BUN 6 L Creatinine 0.7 Estimated GFR > 60 BUN/Creatinine Ratio 9 Glucose 94 Calcium 8.4 Total Bilirubin 0.20 AST 21 ALT 17 Alkaline Phosphatase 91 Total Protein 7.8 Albumin 3.8 L Albumin/Globulin Ratio 1.0 HCG, Quant Urine Color Urine Turbidity Urine pH Ur Specific [place] Urine Protein Urine Glucose (UA) Urine Ketones Urine Blood Urine Nitrite Urine Bilirubin Urine Urobilinogen Ur Leukocyte Esterase Urine WBC (Auto) Urine RBC (Auto) U Epithel Cells (Auto) Urine Mucus Blood Type Antibody Screen 11/02/20 11/02/20 11/02/20 18:29 18:30 18:57 WBC RBC Hgb Hct MCV MCH MCHC RDW Plt Count Lymph % (Auto) [place] % (Auto) Eos % (Auto) Baso % (Auto) Lymph # (Auto) [place] # (Auto) Eos # (Auto) Baso # (Auto) Seg Neutrophils % Seg Neutrophils # PT INR APTT Sodium Potassium Chloride Carbon Dioxide Anion Gap BUN Creatinine Estimated GFR BUN/Creatinine Ratio Glucose Calcium Total Bilirubin AST ALT Alkaline Phosphatase Total Protein Albumin Albumin/Globulin Ratio HCG, Quant < 2 Urine Color Red Urine Turbidity Cloudy Urine pH 6.0 Ur Specific [place] 1.027 Urine Protein 100 mg/dl Urine Glucose (UA) Neg Urine Ketones Neg Urine Blood Lg Urine Nitrite Neg Urine Bilirubin Neg Urine Urobilinogen < 2.0 Ur Leukocyte Esterase Tr Urine WBC (Auto) 11.0 H Urine RBC (Auto) > 182.0 U Epithel Cells (Auto) 3.0 Urine Mucus 3+ Blood Type B POSITIVE Antibody Screen Negative - Medical Decision Making hCG is less than <2, UA mild leukocytes and WBCs, CBC is normal, CMP is normal, patient has been positive, no antibiotics. Patient will follow up with Dr. Ashford in 2 to 3 days this is likely miscarriage. Patient declines vaginal exam at this time. She is abdominal cramping of 3/10. There is no vomiting. Patient advises bleeding is mild at this time patient will follow-up with [facility] tomorrow as scheduled for follow-up ultrasound to ensure no D&C as needed. Critical care attestation.: If time is entered above; I have spent that time in minutes in the direct care of this critically ill patient, excluding procedure time. ED Disposition Clinical Impression: Vaginal bleeding Disposition: DC-01 TO HOME OR SELFCARE Is pt being admited?: No Does the pt Need Aspirin: No Condition: Stable Instructions: Abnormal Uterine Bleeding Additional Instructions: Follow up with OBGYN in am as discussed and agreed, return to emergency if symptoms worsen. Prescriptions: Acetaminophen [Acetaminophen TAB] 1,000 mg PO Q6HR PRN #30 tablet PRN Reason: pain cephALEXin [Keflex] 500 mg PO BID 7 Days #14 cap Referrals: TRANG PATINO NP-Glenny [Primary Care Provider] - 3-5 Days [facility] [Provider Group] - [place] Forms: Work/School Release Form(ED) Time of Disposition: 20:15
[2020-11-02] MEDS ORDERED: ACETAMINOPHEN W/CODEINE 300-30 MG TAB PO ONE (20:13)
== END 2020-11-02 20:30 | disposition home or self-care (01) ==
LOC: ED 16:48
DX: O20.8 Other hemorrhage in early pregnancy (principal); O26.891 Other specified pregnancy related conditions, first trimester; R10.30 Lower abdominal pain, unspecified; I10 Essential (primary) hypertension; J45.909 Unspecified asthma, uncomplicated; Z3A.12 12 weeks gestation of pregnancy; Z98.890 Other specified postprocedural states; Z79.1 Long term (current) use of non-steroidal anti-inflammatories (NSAID); Z79.2 Long term (current) use of antibiotics; Z79.899 Other long term (current) drug therapy; Z88.0 Allergy status to penicillin; Z88.8 Allergy status to other drugs, medicaments and biological substances
CPT/HCPCS: 36415; 80053; 81001; 84702; 85025; 85610; 85730; 86850; 86900; 86901; 87086; Q0162

== ENCOUNTER 2020-11-06 09:37 | Emergency (ER) | payer OTHER ==
[2020-11-06 09:57] VITALS: BP 113/64
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
== END 2020-11-06 11:06 | disposition left against medical advice (07) ==
LOC: ED 09:37
DX: S01.511A Laceration without foreign body of lip, initial encounter (principal); Z53.21 Procedure and treatment not carried out due to patient leaving prior to being seen by health care provider; Y08.89XA Assault by other specified means, initial encounter; Y93.89 Activity, other specified; Y92.89 Other specified places as the place of occurrence of the external cause; Y99.8 Other external cause status